=== PATIENT | female | born 1965 | race Caucasian/White ===

== ENCOUNTER → 2017-01-20 | Outpatient (CLI) | payer BC ==
[~2017-01-20] MED LIST: COZAAR25 MG PO; FERREX 150 FOR1 EACH PO; MULTI-BETIC TA1 EACH PO; NORCO 5-325 TA1 EACH PO
[2017-01-20 09:15] LABS: HEMOGLOBIN 9.2 gm/dl (12.3-15.3); RED BLOOD COUNT 4.63 M/UL (4.00-5.10); WHITE BLOOD COUNT 7.6 K/UL (4.5-11.0)
[2017-01-20 10:31] LABS: BUN/CREATININE RATIO 13 (0-10)
== END ==
LOC: OPSV2 08:04
PROVIDERS: Obstetrics & Gynecology
DX: Z01.812 Encounter for preprocedural laboratory examination (principal); N92.0 Excessive and frequent menstruation with regular cycle; I10 Essential (primary) hypertension; Z88.1 Allergy status to other antibiotic agents; Z88.2 Allergy status to sulfonamides; Z88.8 Allergy status to other drugs, medicaments and biological substances
CPT/HCPCS: 36415; 80048; 81001; 85025

== ENCOUNTER → 2017-01-27 | Day surgery (SDC) | payer BC ==
[~2017-01-27] VITALS: Ht 160 cm; Wt 57.2 kg
== END | disposition home or self-care (01) ==
LOC: OR 07:17
PROVIDERS: Obstetrics & Gynecology
PROC: 0U5B8ZZ Destruction of Endometrium, Via Natural or Artificial Opening Endoscopic (ICD-10-PCS; principal; 2017-01-27 09:15)
DX: N92.0 Excessive and frequent menstruation with regular cycle (principal); M06.9 Rheumatoid arthritis, unspecified; D64.9 Anemia, unspecified; I73.00 Raynaud's syndrome without gangrene; I10 Essential (primary) hypertension; M25.50 Pain in unspecified joint; E55.9 Vitamin D deficiency, unspecified; Z98.51 Tubal ligation status; Z88.2 Allergy status to sulfonamides; Z88.8 Allergy status to other drugs, medicaments and biological substances
CPT/HCPCS: J2250; J2795; J7030; J7120; Q0162